=== PATIENT | male | born 1945 | race Hispanic/Latino ===

== ENCOUNTER → 2019-05-08 | Outpatient (CLI) | payer OTHER ==
[~2019-05-08] MED LIST: SIMV10TA97 PO
== END | disposition home or self-care (01) ==
LOC: SHCH 13:41
PROVIDERS: ATTEND Internal Medicine Cardiovascular Disease
DX: I65.23 Occlusion and stenosis of bilateral carotid arteries (principal)
CPT/HCPCS: 93880

== ENCOUNTER → 2022-06-22 | Outpatient (CLI) | payer OTHER ==
[~2022-06-22] MED LIST changes: +IOHEXOL-350 50ML VIAL IV ONE
== END | disposition home or self-care (01) ==
LOC: RAH 09:38
PROVIDERS: ATTEND Internal Medicine
DX: G31.9 Degenerative disease of nervous system, unspecified (principal); I77.9 Disorder of arteries and arterioles, unspecified; R42 Dizziness and giddiness; I65.23 Occlusion and stenosis of bilateral carotid arteries
CPT/HCPCS: 93880; 70470; Q9967

== ENCOUNTER 2022-11-11 07:28 | Day surgery (SDC) | payer OTHER ==
[2022-11-09 14:39] LABS: BASOPHILS # (AUTO) 0.07 K/uL (0.00-0.20); BASOPHILS % (AUTO) 0.8 % (0.0-5.0); EOSINOPHILS % (AUTO) 8.4 % (0.0-8.0); HEMATOCRIT 40.8 % (42-54); IMMATURE GRANULOCYTE ABSOLUTE 0.06 K/uL (0-1); LYMPHOCYTES # (AUTO) 1.2 K/uL (1.0-4.8); LYMPHOCYTES % (AUTO) 14.5 % (21.0-51.0); MEAN CORPUSCULAR HEMOGLOBIN 32.3 pg (27.0-33.0); MEAN CORPUSCULAR HGB CONC 34.6 g/dL (32.0-36.0); MEAN CORPUSCULAR VOLUME 93.6 fL (79-99); MONOCYTES # (AUTO) 0.8 K/uL (0.1-1.0); MONOCYTES % (AUTO) 9.6 % (3.0-13.0); NEUTROPHILS # (AUTO) 5.5 K/uL (1.8-7.7); PLATELET COUNT (AUTO) 260 K/uL (130-400); RED BLOOD CELL COUNT(AUTO) 4.36 MIL/uL (4.50-6.20); RED CELL DISTRIBUTION WIDTH 12.8 % (11.0-15.5); WHITE BLOOD COUNT (AUTO) 8.4 K/uL (4.8-10.8)
[2022-11-09 14:48] LABS: CREATININE 1.1 mg/dL (0.5-1.5)
[2022-11-09 14:50] VITALS: BP 114/59; PULSE 69; RESP 16
[2022-11-09 14:58] LABS: INR 0.94 (0.85-1.15); PROTHROMBIN TIME 10.9 SEC (9.6-11.6)
[2022-11-11] VITALS (18 sets, daily range): BP systolic 102–132; BP diastolic 51–82; PULSE 50–66; RESP 11–18
[~2022-11-11] VITALS: Ht 160 cm; Wt 61.8 kg
[~2022-11-11 07:28] MED LIST changes: +0.9%NACL 1000ML 1,000 ML IV ONE; +ATOR10 PO; +CEFAZOLIN SODIUM 2 GM VIAL ONE; -IOHEXOL-350 50ML VIAL IV ONE; +METF-526 PO; +METO-408 PO; -SIMV10TA97 PO
[2022-11-11] MEDS ORDERED: LIDOCAINE PF 100MG/5ML (2%) SYRINGE 5ML ONE (08:04)
[2022-11-11] MEDS ORDERED: DEXAMETHASONE SOD PHOSPHATE 10MG/ML 1ML VIAL ONE (08:04)
[2022-11-11] MEDS ORDERED: SUCCINYLCHOLINE CHLORIDE 20 MG/ML 10 ML VIAL ONE (08:04)
[2022-11-11] MEDS ORDERED: MIDAZOLAM HCL 1 MG/ML 2ML VIAL ONE (08:05)
[2022-11-11] MEDS ORDERED: NEOSTIGMINE 5MG/5ML SYR IV ONE (08:05)
[2022-11-11] MEDS ORDERED: PROPOFOL 10 MG/ML 20ML VIAL IV ONE (08:05)
[2022-11-11] MEDS ORDERED: ROCURONIUM 10MG/1ML SYR 10 MG/ML ML ONE (08:05)
[2022-11-11] MEDS ORDERED: ONDANSETRON 4MG INJ ONE (08:05)
[2022-11-11] MEDS ORDERED: GLYCOPYRROLATE 1 MG/5 ML SYRINGE ONE (08:05)
[2022-11-11] MEDS ORDERED: FENTANYL CITRATE PF 50 MCG/1 ML 2ML VIAL ONE ×2 (08:06→10:34)
[2022-11-11] MEDS ORDERED: LIDOCAINE HCL 1% 20 ML VIAL ONE (08:17)
[2022-11-11] MEDS ORDERED: BUPIVACAINE/PF 0.25% 30ML VIAL IJ ONE ×2 (08:17→08:42)
[2022-11-11] MEDS ORDERED: BACITRACIN 28.4 GM OINT TP ONE (08:17)
[2022-11-11] MEDS ORDERED: LIDOCAINE HCL 1% 20 ML VIAL MISC ONE (08:40)
[2022-11-11] MEDS ORDERED: CEFAZOLIN SODIUM 2 GM VIAL IVPB ONE (09:42)
== END 2022-11-11 12:40 | disposition home or self-care (01) ==
LOC: DAH 07:28
PROVIDERS: ATTEND Urology
DX: N47.1 Phimosis (principal); N47.8 Other disorders of prepuce; I10 Essential (primary) hypertension; E11.9 Type 2 diabetes mellitus without complications; Z79.899 Other long term (current) drug therapy; Z79.01 Long term (current) use of anticoagulants; Z98.890 Other specified postprocedural states; Z79.84 Long term (current) use of oral hypoglycemic drugs; Z87.891 Personal history of nicotine dependence
CPT/HCPCS: 80048; 85025; 85610; 85730; 36415; 93005; 54161; 82948 ×2; A6260; A4663; J3010 ×2; J3490 ×3; J1100; J2710; J0330; J7030; J2001; J2250; J2704; J2405; J0690 ×2; A4215; A4223; A4222; A4221; A4510; A4600